=== PATIENT | male | born 1945 | race Caucasian/White ===

== ENCOUNTER 2016-08-24 09:29 | Day surgery (SDC) | payer MEDICARE, BC ==
[~2016-08-24 09:29] MED LIST: BENICAR20 M1 PO; COUMADIN4 M1 PO; COUMADIN5 M2 PO; CPAP; NORVASC2.5 M1 PO; OMEPRAZOLE20 M4 PO; PLAVIX75 M1 PO; PRALUENT S75 MG/1 ML SC; VITAMIN D50000 UNI2 PO; ZYLOPRIM300 M1 PO
[2016-08-24 10:49] LABS: INR 1.1 INR (0.9-1.1); PROTHROMBIN TIME 12.8 SECONDS (9.0-13.6)
== END 2016-08-24 15:50 ==
LOC: SRG 09:29 → SHSB 09:33 → PACU 12:54 → SHSB 13:35
PROVIDERS: Student in an Organized Health Care Education/Training Program
PROC: 09960ZZ Drainage of Left Middle Ear, Open Approach (ICD-10-PCS; principal; 2016-08-24)
PROC: 09950ZZ Drainage of Right Middle Ear, Open Approach (ICD-10-PCS; 2016-08-24)
PROC: 097G0ZZ Dilation of Left Eustachian Tube, Open Approach (ICD-10-PCS; 2016-08-24)
PROC: 097F0ZZ Dilation of Right Eustachian Tube, Open Approach (ICD-10-PCS; 2016-08-24)
PROC: 09SM0ZZ Reposition Nasal Septum, Open Approach (ICD-10-PCS; 2016-08-24)
DX: H69.83 Other specified disorders of Eustachian tube, bilateral (principal); J34.2 Deviated nasal septum; H65.23 Chronic serous otitis media, bilateral; I25.10 Atherosclerotic heart disease of native coronary artery without angina pectoris; I48.91 Unspecified atrial fibrillation; I10 Essential (primary) hypertension; M19.90 Unspecified osteoarthritis, unspecified site; G47.30 Sleep apnea, unspecified; K21.9 Gastro-esophageal reflux disease without esophagitis; E78.5 Hyperlipidemia, unspecified; Z79.01 Long term (current) use of anticoagulants; Z79.02 Long term (current) use of antithrombotics/antiplatelets; Z79.899 Other long term (current) drug therapy; Z87.891 Personal history of nicotine dependence; Z86.73 Personal history of transient ischemic attack (TIA), and cerebral infarction without residual deficits; Z85.46 Personal history of malignant neoplasm of prostate; Z86.14 Personal history of Methicillin resistant Staphylococcus aureus infection; Z95.0 Presence of cardiac pacemaker; Z95.1 Presence of aortocoronary bypass graft; Z95.5 Presence of coronary angioplasty implant and graft; Z98.890 Other specified postprocedural states
CPT/HCPCS: C1726